=== PATIENT | male | born 1985 | race Caucasian/White ===

== ENCOUNTER 2017-06-04 23:24 | Emergency (ER) | payer OTHER ==
[2017-06-04 23:36] VITALS: RESP 18; TEMP 98.6; O2SAT 99
[2017-06-04] MEDS ORDERED: Sodium Chloride 0.9% 1,000 ML IV STA (23:55)
--- NOTE | 2017-06-05 00:32 | CT ---
EXAM: CT Head Without Intravenous Contrast CLINICAL HISTORY: 32 years old, male; Pain; Headache TECHNIQUE: Axial computed tomography images of the head/brain without intravenous contrast. All CT scans at this facility use one or more dose reduction techniques, viz.: automated exposure control; ma/kV adjustment per patient size (including targeted exams where dose is matched to indication; i.e. head); or iterative reconstruction technique. Coronal and sagittal reformatted images were created and reviewed. COMPARISON: No relevant prior studies available. FINDINGS: Brain: No hemorrhage. No significant white matter disease. No edema. Ventricles: No hydrocephalus. Bones: Skull is intact. Sinuses: No acute sinusitis. Mastoid air cells: No mastoid effusion. IMPRESSION: No CT evidence of acute intracranial abnormality.
[2017-06-05 00:56] LABS: BASO # 0.1 K/uL (0.0-0.2); BASO % 0.8 % (0.0-2.0); EOS # 0.2 K/uL (0.0-0.7); EOS % 1.9 % (0.0-4.0); HEMOGLOBIN 16.1 g/dL (12.0-18.0); LYMPH # 2.2 K/uL (1.0-4.3); MEAN CELL VOLUME 85.6 fl (80.0-94.0); MEAN CORPUSCULAR HEMOGLOBIN 29.5 pg (27.0-31.0); MEAN CORPUSCULAR HGB CONC 34.5 g/dL (33.0-37.0); MEAN PLATELET VOLUME 8.1 fl (7.2-11.7); MONO # 0.6 K/uL (0.0-0.8); MONO % 7.4 % (0.0-10.0); NEUT # 5.2 K/uL (1.8-7.0); NEUT % 62.9 % (50.0-75.0); RBC 5.46 Mil/uL (4.40-5.90); WHITE BLOOD COUNT 8.3 K/uL (4.8-10.8)
[2017-06-05 01:04] LABS: ALB/GLOB RATIO 1.2 (1.0-2.1); ALBUMIN 4.6 g/dL (3.5-5.0); ALT/SGPT 33 U/L (21-72); AST/SGOT 34 U/L (17-59); BLOOD UREA NITROGEN 17 mg/dl (9-20); CALCIUM 9.9 mg/dL (8.4-10.2); GFR AFRICAN-AMERICAN > 60; GFR NON-AFRICAN AMERICAN > 60
--- NOTE | 2017-06-05 01:06 | ED PDOC ---
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 Notes that he was attempting to sleep when he felt as if all his extremities had doubled in size. (+) diaphoresis, nausea, and headache. (-) fever. Denies ever experiencing these symptoms in the past and notes that his dizziness waxes/wanes intermittently. Confirms that he feels better now. PCP: TOM Past Medical History Reviewed: Historical Data, Nursing Documentation, Vital Signs Vital Signs: Last Vital Signs Temp 98.6 F 06/04/17 23:32 Pulse 64 06/05/17 02:05 Resp 18 06/04/17 23:32 BP 131/75 06/05/17 02:05 Pulse Ox 99 06/05/17 01:35 - Medical History PMH: No Chronic Diseases - Surgical History Surgical History: No Surg Hx - Family History Family History: States: Unknown Family Hx - Social History Current smoker - smoking cessation education provided: No Ex-Smoker (has not smoked in the last 12 months): No Alcohol: None Drugs: Denies - Home Medications Home Medications: Ambulatory Orders Medication Instructions Recorded Meclizine [Meclizine*] 25 mg PO Q6 #10 tab 06/05/17 - Allergies Allergies/Adverse Reactions: Allergies Allergy/AdvReac Type Severity Reaction Status Date / Time No Known Allergies Allergy Verified 06/04/17 23:32 Review of Systems ROS Statement: Except As Marked, All Systems Reviewed And Found Negative Constitutional: Positive for: Sweats. Negative for: Fever Gastrointestinal: Positive for: Nausea Neurological: Positive for: Headache, Dizziness Physical Exam - Reviewed Nursing Documentation Reviewed: Yes Vital Signs Reviewed: Yes - Physical Exam Appears: Positive for: Non-toxic, No Acute Distress Head Exam: Positive for: ATRAUMATIC, NORMOCEPHALIC Skin: Positive for: Normal Color, Warm, Dry Eye Exam: Positive for: EOMI, Normal appearance, PERRL ENT: Positive for: Normal ENT Inspection Neck: Positive for: Normal, Painless ROM. Negative for: Supple Cardiovascular/Chest: Positive for: Regular Rate, Rhythm. Negative for: Murmur Respiratory: Positive for: Normal Breath Sounds. Negative for: Respiratory Distress Gastrointestinal/Abdominal: Positive for: Normal Exam, Soft. Negative for: Tenderness Extremity: Positive for: Normal ROM. Negative for: Deformity Neurologic/Psych: Positive for: Alert, Oriented. Negative for: Motor/Sensory Deficits - Laboratory Results Result Diagrams: 06/05/17 00:40 06/05/17 00:40 - ECG O2 Sat by Pulse Oximetry: 99 (RA) Pulse Ox Interpretation: Normal Medical Decision Making Medical Decision Makin Initial impression: dizziness r/o vertigo r/o intracranial process Initial plan: * CT HEAD * EKG * Labs * Antivert 25mg PO * NS IV * Zofran 4mg IV * Re-eval 0032 CT HEAD FINDINGS: Brain: No hemorrhage. No significant white matter disease. No edema. Ventricles: No hydrocephalus. Bones: Skull is intact. Sinuses: No acute sinusitis. Mastoid air cells: No mastoid effusion. IMPRESSION: No CT evidence of acute intracranial abnormality 0125 Upon re-evaluation patient notes improvement in symptoms and is stable for discharge. stable gait, normal vital signs. Dx: vertigo Scribe Attestation: Documented by Alisson Kasper acting as a scribe for Johnna Worthington MD. Scribe Attestation: All medical record entries made by the Scribe were at my direction and personally dictated by me. I have reviewed the chart and agree that the record accurately reflects my personal performance of the history, physical exam, medical decision making, and the department course for this patient. I have also personally directed, reviewed, and agree with the discharge instructions and disposition. Disposition - Clinical Impression Clinical Impression: Vertigo - Patient ED Disposition Is Patient to be Admitted: No Counseled Patient/Family Regarding: Studies Performed, Diagnosis, Need For Followup - Disposition Referrals: [facility] [Outside] Mj Godinez MD [Staff Provider] - Disposition: Routine/Home Disposition Time: 01:25 Condition: IMPROVED Additional Instructions: follow up with your primary doctor in 1- 2 days for further evaluation. also follow up with specialist ENT return to the ED with any worsening or concerning symptoms Prescriptions: Meclizine [Meclizine*] 25 mg PO Q6 #10 tab Instructions: Vertigo (a Type of Dizziness), Vertigo (a Type of Dizziness) (DC) Forms: [employer] (Citizen Of [place])
[2017-06-05 02:06] VITALS: BP 131/75; PULSE 64
--- NOTE | 2017-06-05 09:17 | CARD ---
APPROVED REPORT EKG Measurement Heart [id number] <Conclusion> Sinus bradycardia Otherwise normal ECG
== END 2017-06-05 01:32 | disposition home or self-care (01) ==
LOC: H.ER 23:24
DX: R42 Dizziness and giddiness (principal)
CPT/HCPCS: 70450; 80053; 82948; 85025; 93005; 96360; 99284; J2405; J7040

== ENCOUNTER 2018-05-27 01:47 | Emergency (ER) | payer OTHER ==
[2018-05-27 02:15] VITALS: RESP 18; O2SAT 100
[2018-05-27 03:41] LABS: BASO # 0.1 K/uL (0.0-0.2); BASO % 1.1 % (0.0-2.0); EOS # 0.2 K/uL (0.0-0.7); EOS % 2.8 % (0.0-4.0); LYMPH # 2.8 K/uL (1.0-4.3); LYMPH % 43.9 % (20.0-40.0); MEAN CELL VOLUME 84.9 fl (80.0-94.0); MEAN CORPUSCULAR HGB CONC 34.2 g/dL (33.0-37.0); MEAN PLATELET VOLUME 8.2 fl (7.2-11.7); MONO # 0.6 K/uL (0.0-0.8); MONO % 8.8 % (0.0-10.0); NEUT # 2.8 K/uL (1.8-7.0); NEUT % 43.4 % (50.0-75.0); NRBC % 0.1 % (0.0-0.0); RBC 5.17 Mil/uL (4.40-5.90); RED CELL DISTRIBUTION WIDTH 13.5 % (11.5-14.5); WHITE BLOOD COUNT 6.4 K/uL (4.8-10.8)
[2018-05-27 03:48] LABS: INR 1.1; PROTHROMBIN TIME 12.6 Seconds (9.8-13.1)
[2018-05-27 03:50] LABS: BLOOD UREA NITROGEN 18 mg/dl (9-20); CALCIUM 9.7 mg/dL (8.4-10.2); GFR NON-AFRICAN AMERICAN > 60
[2018-05-27 03:51] LABS: PARTIAL THROMBOPLASTIN TIME 64.6 Seconds (25.6-37.1)
--- NOTE | 2018-05-27 04:36 | ED PDOC ---
HPI: Chest Pain Time Seen by Provider: 05/27/18 03:04 Chief Complaint (Nursing): Chest Pain Chief Complaint (Provider): Dizziness and chest pain History Per: Patient Onset/Duration Of Symptoms: Hrs Additional Complaint(s): 33 year old male presents to the ED with dizziness and chest pain. Patient states this morning he woke up with left sided chest pain that lasted about 1 hour and went away spontaneously. He reports pain has been on and off all day and has a fluctuating rate of 40-50 bpm. Patient reports that when he gets lower towards the ground, his dizziness is worse. He states this morning he was SOB but is not currently. PMD: Cassius Ortez Past Medical History Reviewed: Historical Data, Nursing Documentation, Vital Signs Vital Signs: Last Vital Signs Temp 98.6 F 05/27/18 02:10 Pulse 52 L 05/27/18 02:10 Resp 18 05/27/18 02:10 BP 146/84 05/27/18 02:10 Pulse Ox 100 05/27/18 02:10 - Medical History PMH: No Chronic Diseases - Surgical History Surgical History: Appendectomy - Family History Family History: States: CAD (Mother with pacemaker) - Social History Current smoker - smoking cessation education provided: No Alcohol: Social Drugs: Denies - Home Medications Home Medications: Ambulatory Orders Medication Instructions Recorded Meclizine [Meclizine*] 25 mg PO Q6 #10 tab 06/05/17 - Allergies Allergies/Adverse Reactions: Allergies Allergy/AdvReac Type Severity Reaction Status Date / Time No Known Allergies Allergy Verified 06/04/17 23:32 Review of Systems ROS Statement: Except As Marked, All Systems Reviewed And Found Negative Cardiovascular: Positive for: Chest Pain Neurological: Positive for: Dizziness Physical Exam - Reviewed Nursing Documentation Reviewed: Yes Vital Signs Reviewed: Yes - Physical Exam Appears: Positive for: No Acute Distress Head Exam: Positive for: ATRAUMATIC, NORMOCEPHALIC Skin: Positive for: Normal Color, Warm, Dry Eye Exam: Positive for: Normal appearance Neck: Positive for: Normal, Painless ROM Cardiovascular/Chest: Negative for: Tachycardia Respiratory: Positive for: Normal Breath Sounds. Negative for: Wheezing, Respiratory Distress Extremity: Positive for: Normal ROM Neurological/Psych: Positive for: Awake, Alert, Normal Tone - Laboratory Results Result Diagrams: 05/27/18 03:31 05/27/18 03:31 Lab Results: PT 12.6 Seconds (9.8-13.1) 05/27/18 03:31 INR 1.1 05/27/18 03:31 APTT 64.6 Seconds (25.6-37.1) H 05/27/18 03:31 Troponin I < 0.0120 ng/mL (0.00-0.120) 05/27/18 03:31 - ECG ECG Rhythm: Positive for: Sinus Bradycardia. Negative for: ST/T Changes Rate: 46 O2 Sat by Pulse Oximetry: 100 (RA) Pulse Ox Interpretation: Normal Medical Decision Making Medical Decision Making: Initial Impression: Dizziness insetting of bradycardia; will check bloodwork and chest X-ray Initial Plan: --ECG --BMP --Troponin stat --CBC --PTT --Prothrombin time --Chest X-ray 05:25 Patient is stable for discharge. 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 --- Scribe Attestation: Documented by Brett Alvarez acting as a scribe for Raghavendra Zavala MD. Provider Scribe Attestation: All medical record entries made by the Scribe were at my direction and personally dictated by me. I have reviewed the chart and agree that the record accurately reflects my personal performance of the history, physical exam, medical decision making, and the department course for this patient. I have also personally directed, reviewed, and agree with the discharge instructions and disposition. Disposition - Clinical Impression Clinical Impression: Bradycardia - Disposition Referrals: [facility] [Outside] Disposition: Routine/Home Disposition Time: 05:25 Condition: IMPROVED Instructions: Bradycardia Forms: [employer] (Malaysian)
[2018-05-27 06:53] VITALS: BP 138/81; PULSE 54; TEMP 98.2
--- NOTE | 2018-05-27 11:51 | RAD ---
Date of service: 05/27/2018 HISTORY: cp COMPARISON: No prior. TECHNIQUE: Chest PA and lateral views FINDINGS: LUNGS: No active pulmonary disease. PLEURA: No significant pleural effusion identified. No pneumothorax apparent. CARDIOVASCULAR: No aortic atherosclerotic calcification present. Normal cardiac size. No pulmonary vascular congestion. OSSEOUS STRUCTURES: No significant abnormalities. VISUALIZED UPPER ABDOMEN: Normal. OTHER FINDINGS: None. IMPRESSION: No active disease.
--- NOTE | 2018-05-27 21:19 | CARD ---
APPROVED REPORT Date of service: 05/27/2018 EKG Measurement Heart [id number] <Conclusion> Sinus bradycardia RSR' or QR pattern in V1 suggests right ventricular conduction delay Minimal voltage criteria for LVH, may be normal variant Borderline ECG
== END 2018-05-27 06:10 | disposition home or self-care (01) ==
LOC: H.ER 01:47
DX: R00.1 Bradycardia, unspecified (principal)